=== PATIENT | male | born 1980 | race Caucasian/White ===

== ENCOUNTER 2017-05-12 02:21 | Emergency (ER) | payer OTHER ==
[~2017-05-12] VITALS: Ht 182.9 cm; Wt 126.1 kg
[2017-05-12 02:35] VITALS: Ht 182.9 cm; Wt 126.1 kg
[2017-05-12 04:29] LABS: CALCIUM 8.5 mg/dL (8.5-10.1); CARBON DIOXIDE 26.8 mmol/L (21-32); CHLORIDE SERUM 99 mmol/L (98-107); CREATININE SERUM 1.1 mg/dL (0.7-1.3); GFR1 > 60 mL/min; GLUCOSE SERUM 129 mg/dL (74-106); POTASSIUM SERUM 4.8 mmol/L (3.5-5.1); SODIUM SERUM 133 mmol/L (136-145)
[2017-05-12 04:34] LABS: ALBUMIN 3.6 g/dL (3.4-5.0); ALKALINE PHOSPHATASE 59 U/L (46-116); ALT/SGPT 51 U/L (16-63); AMYLASE 45 U/L (25-115); AST/SGOT 18 U/L (15-37); LIPASE 117 IU/L (73-393); TOTAL PROTEIN, SERUM 7.3 g/dL (6.4-8.2)
[2017-05-12 04:51] LABS: microscopic required? NO
[2017-05-12 05:01] LABS: BASOPHIL % 0.2 % (0-2); PLATELET COUNT 240 x10^3mcL (130-400); RED CELL DISTRIBUTION WIDTH 13.5 % (11.5-14.5)
[2017-05-12 05:05] LABS: UA SPECIFIC GRAVITY 1.015 (1.005-1.035); urine erythrocyte NEGATIVE (NEGATIVE)
[2017-05-12 06:13] VITALS: BP 145/88
== END 2017-05-12 06:13 | disposition home or self-care (01) ==
LOC: ED 02:21
PROVIDERS: Emergency Medicine
DX: K21.9 Gastro-esophageal reflux disease without esophagitis (principal); K59.00 Constipation, unspecified
CPT/HCPCS: 83880; C9113; J1885; J2270; J2765

== ENCOUNTER 2018-05-05 08:20 | Emergency (ER) | payer OTHER ==
[~2018-05-05] VITALS: Ht 182.9 cm; Wt 120.2 kg
[2018-05-05 08:22] VITALS: Ht 182.9 cm; Wt 120.2 kg
[2018-05-05 09:45] VITALS: BP 154/81
== END 2018-05-05 09:45 | disposition home or self-care (01) ==
LOC: ED 08:20
DX: S29.011A Strain of muscle and tendon of front wall of thorax, initial encounter (principal); S50.12XA Contusion of left forearm, initial encounter; I10 Essential (primary) hypertension; K21.9 Gastro-esophageal reflux disease without esophagitis; V49.49XA Driver injured in collision with other motor vehicles in traffic accident, initial encounter; W22.11XA Striking against or struck by driver side automobile airbag, initial encounter; Y93.I9 Activity, other involving external motion; Y92.413 State road as the place of occurrence of the external cause; Y99.8 Other external cause status